=== PATIENT | male | born 1965 | race Caucasian/White ===

== ENCOUNTER 2019-01-15 05:44 | Emergency (ER) | payer BC ==
[~2019-01-15] VITALS: Ht 162.6 cm; Wt 61.2 kg
--- OUTSIDE RECORDS SUMMARY | 2019-01-15 05:49 | XMS REPORT | Continuity of Care Document ---
Author Organization Unknown Address Unknown Allergies There is no data. Medications There is no data. Problems Date Dx Coded Attending Type Code Diagnosis Diagnosed By 09/27/2009 FREDDY LEVINE DO5.3 HEPATITIS VIRAL/ALL 09/27/2009 FREDDY LEVINE DO V05.3 HEPATITIS VIRAL/ALL 11/20/2010 FREDDY LEVINE DO V06.5 DT, TETANUS-DIPHTHERIA [Td] ,TDAP 11/20/2010 FREDDY LEVINE DO V06.5 DT, TETANUS-DIPHTHERIA [Td] ,TDAP 04/14/2013 FREDDY LEVINE DO V04.81 FLU SHOT 04/14/2013 FREDDY LEVINE DO V04.81 FLU SHOT Procedures There is no data. Results There is no data. Encounters ACCT No. Visit Date/Time Discharge Status Pt. Type Provider Facility Loc./Unit Complaint [id number] 04/06/2014 10:38:00 04/06/2014 23:59:59 [facility] Outpatient FREDDY LEVINE DO [id number] 04/14/2013 13:28:00 04/14/2013 23:59:59 [facility] Outpatient FREDDY LEVINE DO
[2019-01-15] MEDS ORDERED: NS IV 1000 ML 1,000 ML IV ONE ×2 (06:02→07:30)
[2019-01-15 06:07] LABS: CLARITY,URINE CLEAR; COLOR,URINE YELLOW; GLUCOSE, URINE (UA) NEGATIVE (NEGATIVE); KETONES,URINE 1+ (NEGATIVE); LEUKOCYTE ESTERASE ,URINE NEGATIVE (NEGATIVE); NITRITE,URINE NEGATIVE (NEGATIVE); PH,URINE 5 (5-9); PROTEIN,URINE 2+ (NEGATIVE); UROBILINOGEN,URINE 1 MG/DL (NORMAL)
[2019-01-15 06:10] LABS: BASOPHILS % (AUTO) 0 % (0-10); EOSINOPHILS # (AUTO) 0.1 10^3/uL (0.0-0.3); EOSINOPHILS % (AUTO) 1 % (0-10); HEMATOCRIT 42 % (40-54); HEMOGLOBIN 14.1 G/DL (13.3-17.7); LYMPHOCYTES # (AUTO) 1.3 X 10^3 (1.0-4.0); LYMPHOCYTES % (AUTO) 15 % (12-44); MEAN CORPUSCULAR HEMOGLOBIN 30 PG (25-34); MEAN CORPUSCULAR HGB CONC 34 G/DL (32-36); MEAN CORPUSCULAR VOLUME 88 FL (80-99); MEAN PLATELET VOLUME 9.1 FL (7.4-10.4); MONOCYTES # (AUTO) 0.7 X 10^3 (0.0-1.0); MONOCYTES % (AUTO) 8 % (0-12); NEUTROPHILS # (AUTO) 6.5 X 10^3 (1.8-7.8); NEUTROPHILS % (AUTO) 76 % (42-75); PLATELET COUNT 192 10^3/uL (130-400); WHITE BLOOD COUNT 8.6 10^3/uL (4.3-11.0)
[2019-01-15] MEDS ORDERED: fentaNYL INJECTION 100 MCG/2 ML AMP IVP STA ×2 (06:14→07:18)
[2019-01-15] MEDS ORDERED: KETOROLAC 30 MG/ML VIAL IVP ONE (06:15)
[2019-01-15] MEDS ORDERED: ONDANSETRON 4 MG/2 ML (SDV) Z0FRAN IVP ONE (06:15)
--- NOTE | 2019-01-15 06:23 | ED GU-Male ---
General Chief Complaint: Abdominal/GI Problems Stated Complaint: KIDNEY STONE Nursing Triage Note: AMBULATORY TO ED ROOM 10 WITH C/O RLQ PAIN. STATES 2 WEEKS AGO HAD KIDNEY STONE THAT PASSED. WAS OUTSIDE WORKING IN YARD ALL DAY YESTERDAY, BUT DID TAKE MULTIPLE REST AND WATER BREAKS. WOKE UP AT 0200 THIS AM WITH PAIN AND NAUSEA. Source: patient Exam Limitations: no limitations History of Present Illness Date Seen by Provider: Jan 15, 2019 Time Seen by Provider: 06:00 Initial Comments Here with report of right-sided abdominal pain that he believes is a kidney sto ne. Had similar symptoms 2 weeks ago and he drank a lot of water at that time. He was ultimately passed. Yesterday he worked out in the yard quite a bit and then went for a run in the evening. He states he drank a lot of water yesterday. 2 AM he woke up with sudden right-sided abdominal pain that goes from the flank to the groin. Had some difficulty with urination. He drinks a lot of water and an effort to get his urine flow going pain increased so he presented here. Nausea and vomiting. No aggravating or relieving factors and is unable to sit still hardly due to pain. Timing/Duration: this morning Severity/Quality: severe, aching, cramping Location: right flank Radiation: groin Activities at Onset: sleep Modifying Factors: Worsens With Movement, Worsens With Resting, Worsens With Urinating Associated Symptoms: No dysuria, No fever/chills, No loss of bladder control; nausea/vomiting; No swelling Allergies and Home Medications Allergies Coded Allergies: No Known Drug Allergies (Unverified , 01/15/19) Patient Home Medication List Home Medication List Reviewed: Yes Review of Systems Review of Systems Constitutional: see HPI; No chills, No fever EENTM: no symptoms reported Respiratory: no symptoms reported Cardiovascular: no symptoms reported Gastrointestinal: see HPI, abdominal pain, nausea; No vomiting Genitourinary: see HPI; denies burning; flank pain Musculoskeletal: no symptoms reported Skin: no symptoms reported All Other Systemes Reviewed Negative Unless Noted: Yes Past Jgeafqc-Ijbizv-Cvvqnx Hx Past Med/Social Hx: Reviewed Nursing Past Med/Soc Hx Patient Social History Alcohol Use: Denies Use Recreational Drug Use: No Smoking Status: Never a Smoker Recent Foreign Travel: No Contact w/Someone Who Travel: No Recent Infectious Disease Expo: No Recent Hopitalizations: No Physical Abuse: No Sexual Abuse: No Mistreated: No Fear: No Seasonal Allergies Seasonal Allergies: No Past Medical History Surgeries: Yes (RHINOPLASTY X2) Respiratory: No Cardiac: No Neurological: No Genitourinary: Yes (KIDNEY STONE PASSED 2 WEEKS AGO) Kidney Stones Gastrointestinal: No Endocrine: No HEENT: No Cancer: No Psychosocial: No Blood Disorders: No Family Medical History Reviewed Nursing Family Hx Physical Exam Vital Signs Vital Signs - First Documented 01/15/19 05:55 Temp 97.1 Pulse 54 Resp 16 B/P (MAP) 112/88 (96) Capillary Refill : Less Than 3 Seconds Height, Weight, BMI Height: 5'4.00" Weight: 135lbs. oz. 61.436471dv; BMI Method:Stated General Appearance: WD/WN, moderate distress HEENT: PERRL/EOMI, pharynx normal Neck: full range of motion, supple Cardiovascular: regular rate, rhythm, no murmur Respiratory: lungs clear, normal breath sounds Gastrointestinal: soft, tenderness (right lower quadrant and right flank) Back: normal inspection, no CVA tenderness, no vertebral tenderness Extremities: non-tender, normal inspection Neurologic/Psychiatric: alert, oriented x 3 Skin: normal color, warm/dry Progress/Results/Core Measures Suspected Sepsis Recent Fever Within 48 Hours: No Infection Criteria Present: Suspected New Infection New/Unexplained Altered Menta: No Sepsis Screen: No Definite Risk SIRS Temperature:97.1 Pulse: 54 Respiratory Rate: 16 Laboratory Tests 01/15/19 06:03: White Blood Count 8.6 Blood Pressure 112 /88 Mean: 96 Laboratory Tests 01/15/19 06:03: Creatinine 1.44H, Platelet Count 192, Total Bilirubin 1.4H Results/Orders Lab Results Laboratory Tests Test 01/15/19 05:57 01/15/19 06:03 Range/Units Urine Color YELLOW Urine Clarity CLEAR Urine pH 5 5-9 Urine Specific [place] 1.025 H 1.016-1.022 Urine Protein 2+ H NEGATIVE Urine Glucose (UA) NEGATIVE NEGATIVE Urine Ketones 1+ H NEGATIVE Urine Nitrite NEGATIVE NEGATIVE Urine Bilirubin 1+ H NEGATIVE Urine Urobilinogen 1 NORMAL MG/DL Urine Leukocyte Esterase NEGATIVE NEGATIVE Urine RBC (Auto) 5+ H NEGATIVE Urine RBC 50-100 H /HPF Urine WBC RARE /HPF Urine Squamous Epithelial Cells NONE /HPF Urine Crystals NONE /LPF Urine Bacteria FEW H /HPF Urine Casts PRESENT /LPF Urine Hyaline Casts RARE /LPF Urine Mucus LARGE H /LPF Urine Culture Indicated NO White Blood Count 8.6 4.3-11.0 10^3/uL Red Blood Count 4.71 4.35-5.85 10^6/uL Hemoglobin 14.1 13.3-17.7 G/DL Hematocrit 42 40-54 % Mean Corpuscular Volume 88 80-99 FL Mean Corpuscular Hemoglobin 30 25-34 PG Mean Corpuscular Hemoglobin Concent 34 32-36 G/DL Red Cell Distribution Width 13.0 10.0-14.5 % Platelet Count 192 130-400 10^3/uL Mean Platelet Volume 9.1 7.4-10.4 FL Neutrophils (%) (Auto) 76 H 42-75 % Lymphocytes (%) (Auto) 15 12-44 % Monocytes (%) (Auto) 8 0-12 % Eosinophils (%) (Auto) 1 0-10 % Basophils (%) (Auto) 0 0-10 % Neutrophils # (Auto) 6.5 1.8-7.8 X 10^3 Lymphocytes # (Auto) 1.3 1.0-4.0 X 10^3 Monocytes # (Auto) 0.7 0.0-1.0 X 10^3 Eosinophils # (Auto) 0.1 0.0-0.3 10^3/uL Basophils # (Auto) 0.0 0.0-0.1 10^3/uL Sodium Level 139 135-145 MMOL/L Potassium Level 3.7 3.6-5.0 MMOL/L Chloride Level 100 98-107 MMOL/L Carbon Dioxide Level 26 21-32 MMOL/L Anion Gap 13 5-14 MMOL/L Blood Urea Nitrogen 30 H 7-18 MG/DL Creatinine 1.44 H 0.60-1.30 MG/DL Estimat Glomerular Filtration Rate 52 BUN/Creatinine Ratio 21 Glucose Level 107 H 70-105 MG/DL Calcium Level 9.7 8.5-10.1 MG/DL Corrected Calcium 8.5-10.1 MG/DL Total Bilirubin 1.4 H 0.1-1.0 MG/DL Aspartate Amino Transf (AST/SGOT) 22 5-34 U/L Alanine Aminotransferase (ALT/SGPT) 18 0-55 U/L Alkaline Phosphatase 66 40-136 U/L Total Protein 7.6 6.4-8.2 GM/DL Albumin 4.7 H 3.2-4.5 GM/DL My Orders Orders - HUSEYIN KESSLER MD Fentanyl Injection (Sublimaze Injection (01/15/19 06:14) Ct Abd/Pelvis Wo(Kidney Stone) (01/15/19 06:28) Abdomen/Kub 1view (01/15/19 06:28) Fentanyl Injection (Sublimaze Injection (01/15/19 07:18) Ed Iv/Invasive Line Start (01/15/19 07:30) Ns Iv 1000 Ml (Sodium Chloride 0.9%) (01/15/19 07:30) Medications Given in ED Current Medications Medications Dose Ordered Sig/Mindy Route Start Time Stop Time Status Last Admin Dose Admin Ketorolac Tromethamine 30 mg ONCE ONCE IVP 01/15/19 06:15 01/15/19 06:16 DC 01/15/19 06:09 30 MG Ondansetron HCl 8 mg ONCE ONCE IVP 01/15/19 06:15 01/15/19 06:16 DC 01/15/19 06:09 8 MG Sodium Chloride 1,000 ml @ 0 mls/hr Q0M ONCE IV 01/15/19 06:02 01/15/19 06:04 DC 01/15/19 06:09 0 MLS/HR Sodium Chloride 1,000 ml @ 0 mls/hr Q0M ONCE IV 01/15/19 07:30 01/15/19 07:31 DC 01/15/19 07:35 1,000 MLS/HR Vital Signs/I&O 01/15/19 05:55 Temp 97.1 Pulse 54 Resp 16 B/P (MAP) 112/88 (96) Capillary Refill : Less Than 3 Seconds Blood Pressure Mean: 96 Progress Note : Progress Note Seen and evaluated. IV, labs, UA, normal saline 1 L bolus, Zofran 8 mg IV and Toradol 30 mg IV ordered. Pain continued. Fentanyl 50 g IV ordered. Monitor patient. CT abdomen and pelvis as well as KUB ordered. 0815: Radiological evaluation complete. Did repeat fentanyl 75 g IV. Stone noted. We will treat outpatient currently. 0820: Overall doing better. Repeat fluids complete. Discharged home with return precautions. Patient verbalize understanding instructions and agreement with plan. Diagnostic Imaging Diagonstic Imaging: CT Plain Films/CT/US/NM/MRI: abdomen, pelvis [facility] [place] [place] NAME: ARA SCHULER [facility] REC#: [id number] PT STATUS: REG ER : 1965 PHYSICIAN: HUSEYIN KESSLER MD ADMIT DATE: 01/15/19/ER Draft Date of Exam:01/15/19 CT ABD/PELVIS WO(KIDNEY STONE) PROCEDURE: CT urinary tract, rule out kidney stone. TECHNIQUE: Multiple contiguous axial images were obtained through the abdomen and pelvis without the use of intravenous contrast. Auto Exposure Controls were utilized during the CT exam to meet ALARA standards for radiation dose reduction. INDICATION: Right lower quadrant abdominal pain Unenhanced images of the liver and spleen are unremarkable. No gallbladder, pancreatic or adrenal gland abnormality identified. Left kidney is unremarkable. There is mild right hydronephrosis with punctate calcification in the lower pole of the right kidney. There is mild dilatation of the right ureter to the level of an approximately 0.2-0.3 cm stone in the midportion of the right ureter. There is no evidence of appendiceal inflammation. No bladder calculus is identified. There is no free fluid seen within the abdomen or pelvis. IMPRESSION: Approximately 0.3 cm calculus is seen in the midportion of the right ureter with mild resultant dilatation of the renal collecting system and ureter indicating at least partial obstruction. Note is made of punctate nonobstructing calculus in the lower pole of the right kidney without other acute abnormality detected. Dictated on workstation # [id number] Dict: 01/15/19718 Trans: 01/15/19 0726 OFELIA [id number] Interpreted by: KEN ANDREW MD Electronically signed by: Diagonstic Imaging: Xray Plain Films/CT/US/NM/MRI: abdomen Comments [facility] [place], [place] NAME: ARA SCHULER [facility] REC#: [id number] PT STATUS: REG ER : 1965 PHYSICIAN: HUSEYIN KESSLER MD ADMIT DATE: 01/15/19/ER Draft Date of Exam:01/15/19 ABDOMEN/KUB 1VIEW INDICATION: Right lower quadrant abdominal pain COMPARISON: None. FINDINGS: Single view of the abdomen demonstrates a nondistended bowel gas pattern. There is no significant constipation. No abnormal calcifications are seen. Osseous structures normal. IMPRESSION: Negative KUB. Dictated on workstation # [id number] Dict: 01/15/19 0805 Trans: 01/15/19 0808 [facility] [id number] Interpreted by: ANAT JONAS Electronically signed by: Departure Impression Primary Impression: Right ureteral stone Disposition: HOME, SELF-CARE Condition: Stable Departure-Patient Inst. Decision time for Depature: 08:24 Referrals: NO,LOCAL PHYSICIAN (PCP) Primary Care Physician DONOVAN DOYLE MD Patient Instructions: Kidney Stones (DC) Add. Discharge Instructions: All discharge instructions reviewed with patient and/or family. Voiced un derstanding. Take medications as directed. You may take ibuprofen 600 mg every 8 hours as needed for pain and I recommend you take that scheduled every 8 hours for 3 days. You may take Tylenol/acetaminophen 1000 mg every 6 hours as needed for pain if you're not taking the prescribed pain medicine but do not take both the same time as they both have acetaminophen in them. Call Dr. Doyle's office in the morning for appointment this week. Return for worse pain, inability to urinate, fever, weakness or other concerns as needed. Ensure that you drink plenty of fluids. Scripts Hydrocodone Bit/Acetaminophen (Hydrocodone/Acetaminophen 5/325mg Tablet) 1 Tab Tab 1 EACH PO Q4-6HR PRN for PAIN-MODERATE MDD 10 for 3 Days, #12 TAB 0 Refills Prov: HUSEYIN KESSLER MD 01/15/19 Cephalexin (Cephalexin) 500 Mg Tablet 500 MG PO BID, #14 TAB 0 Refills Prov: HUSEYIN KESSLER MD 01/15/19 Tamsulosin HCl (Flomax) 0.4 Mg Cap 0.4 MG PO DAILY, #7 CAP Prov: HUSEYIN KESSLER MD 01/15/19 Copy Copies To 1: DONOVAN DOYLE MD, TIMOTHY D MD Jan 15, 2019 06:23
[2019-01-15 06:24] LABS: BACTERIA,URINE FEW /HPF; HYALINE CASTS, URINE RARE /LPF; RBC,URINE 50-100 /HPF; WBC,URINE RARE /HPF
[2019-01-15 06:25] LABS: BILIRUBIN,URINE 1+ (NEGATIVE)
[2019-01-15 06:30] LABS: ALANINE AMINOTRANSFERASE 18 U/L (0-55); ALBUMIN 4.7 GM/DL (3.2-4.5); ALKALINE PHOSPHATASE 66 U/L (40-136); BILIRUBIN,TOTAL 1.4 MG/DL (0.1-1.0); BUN/CREATININE RATIO 21; CALCIUM 9.7 MG/DL (8.5-10.1); CARBON DIOXIDE 26 MMOL/L (21-32); CHLORIDE 100 MMOL/L (98-107); CREATININE SERUM 1.44 MG/DL (0.60-1.30); GFR ESTIMATED 52; GLUCOSE 107 MG/DL (70-105); POTASSIUM 3.7 MMOL/L (3.6-5.0); SODIUM 139 MMOL/L (135-145); TOTAL PROTEIN 7.6 GM/DL (6.4-8.2)
--- NOTE | 2019-01-15 07:27 | Diagnostic Imaging Report ---
PROCEDURE: CT urinary tract, rule out kidney stone. TECHNIQUE: Multiple contiguous axial images were obtained through the abdomen and pelvis without the use of intravenous contrast. Auto Exposure Controls were utilized during the CT exam to meet ALARA standards for radiation dose reduction. INDICATION: Right lower quadrant abdominal pain Unenhanced images of the liver and spleen are unremarkable. No gallbladder, pancreatic or adrenal gland abnormality identified. Left kidney is unremarkable. There is mild right hydronephrosis with punctate calcification in the lower pole of the right kidney. There is mild dilatation of the right ureter to the level of an approximately 0.2-0.3 cm stone in the midportion of the right ureter. There is no evidence of appendiceal inflammation. No bladder calculus is identified. There is no free fluid seen within the abdomen or pelvis. IMPRESSION: Approximately 0.3 cm calculus is seen in the midportion of the right ureter with mild resultant dilatation of the renal collecting system and ureter indicating at least partial obstruction. Note is made of punctate nonobstructing calculus in the lower pole of the right kidney without other acute abnormality detected. Dictated by: Dictated on workstation # [id number]
--- NOTE | 2019-01-15 08:08 | Diagnostic Imaging Report ---
INDICATION: Right lower quadrant abdominal pain COMPARISON: None. FINDINGS: Single view of the abdomen demonstrates a nondistended bowel gas pattern. There is no significant constipation. No abnormal calcifications are seen. Osseous structures normal. IMPRESSION: Negative KUB. Dictated by: Dictated on workstation # [id number]
[2019-01-15] MEDS ORDERED: TAMS0.4C98 PO (08:31)
[2019-01-15] MEDS ORDERED: CEPH500T PO (08:31)
[2019-01-15] MEDS ORDERED: ACHD5005 PO (08:31)
[2019-01-15 08:40] VITALS: BP 110/80
[2019-01-24] MEDS ORDERED: CETI10CA PO (07:54)
== END 2019-01-15 08:40 | disposition home or self-care (01) ==
LOC: EDUNIT# 05:44 → ER 05:46
DX: N13.2 Hydronephrosis with renal and ureteral calculous obstruction (principal)
CPT/HCPCS: 36415; 74018; 74176; 80053; 81000; 85025; 96361; 96374; 96375; 96376

== ENCOUNTER → 2019-01-23 | Outpatient (CLI) | payer BC ==
[~2019-01-23] MED LIST: ACHD5005 PO; CEPH500T PO; CETI10CA PO; PHEN-640 PO; TAMS0.4C98 PO
--- NOTE | 2019-01-23 13:24 | Diagnostic Imaging Report ---
PROCEDURE: CT urinary tract, rule out kidney stone. TECHNIQUE: Multiple contiguous axial images were obtained through the abdomen and pelvis without the use of intravenous contrast. Auto Exposure Controls were utilized during the CT exam to meet ALARA standards for radiation dose reduction. INDICATION: Right ureteral calculi. Study is performed for followup. COMPARISON: Correlation is made with recent CT study from 01/15/2019. FINDINGS: A previously noted 2-3 mm calculus in the mid right ureter is again noted and appears to be in a similar location within the right ureter. However, the degree of renal enlargement on the right as well as perinephric and periureteral inflammatory stranding has significantly improved. In addition, the degree of hydronephrosis and hydroureter appears to be improved. Left kidney is unremarkable. Lung bases are clear. Liver and gallbladder are unremarkable. Pancreas and spleen are unremarkable. No adrenal mass is detected. Bowel loops are normal in caliber. Appendix is visualized in the right lower quadrant and unremarkable. There is no ascites or inflammatory process seen. Bladder and prostate appear to be stable. Bony structures are nonacute. IMPRESSION: 2-3 mm mid right ureteric calculus appears unchanged in position when compared with examination from 01/15/2019. However, the degree of right-sided hydroureteronephrosis as well as right renal enlargement with perinephric and periureteral inflammatory stranding has improved since prior exam. No new abnormality is detected. Dictated by: Dictated on workstation # [id number]
== END ==
LOC: RAD 12:09
PROVIDERS: ATTEND Urology
DX: N13.2 Hydronephrosis with renal and ureteral calculous obstruction (principal)
CPT/HCPCS: 74176

== ENCOUNTER 2019-02-13 11:22 | Outpatient (RCR) | payer BC | END 2019-05-14 | disposition home or self-care (01) | LOC: LAB 11:22 | PROVIDERS: ATTEND Urology | DX: N20.0 Calculus of kidney (principal) | CPT/HCPCS: 36415; 82140; 82340; 82507; 82570; 83735; 83945; 83986; 84105; 84133; 84300; 84392; 84560 ==

== ENCOUNTER 2021-01-03 06:28 | Outpatient (CLI) | payer BC ==
[~2021-01-03] VITALS: Ht 162.6 cm; Wt 61.3 kg
[~2021-01-03 06:28] MED LIST changes: -TAMS0.4C98 PO; +TMSL.4C PO
== END 2021-01-07 12:06 | disposition home or self-care (01) ==
LOC: PREOP 06:28
PROVIDERS: ATTEND Surgery
DX: Z01.818 Encounter for other preprocedural examination (principal)

== ENCOUNTER → 2021-01-10 | Day surgery (SDC) | payer BC ==
[~2021-01-10] VITALS: Ht 162.6 cm; Wt 61.3 kg
[~2021-01-10] MED LIST changes: +LACTATED RINGERS 1,000 ML IV ONE; +LACTATED RINGERS 1,000 ML IV STA; +MIDAZOLAM 2 MG/2 ML (VERSED) VIAL ONE; +PROPOFOL INJECTION 50 ML IV ONE
[2021-01-10 07:04] VITALS: BP 118/65
[2021-01-10 08:20] VITALS: BP 91/54
[2021-01-10 08:25] VITALS: BP 93/53
[2021-01-10 08:50] VITALS: BP 96/66
--- NOTE | 2021-01-10 08:59 | Anesthesia-General Post-Op ---
MAC Patient Condition Mental Status/LOC: Same as Preop Cardiovascular: Satisfactory Nausea/Vomiting: Absent Respiratory: Satisfactory Pain: Controlled Complications: Absent Post Op Complications Complications None Follow Up Care/Instructions Patient Instructions None needed. Anesthesiology Discharge Order Discharge Order Patient is doing well, no complaints, stable vital signs, no apparent adverse anesthesia problems. No complications reported per nursing. RANDY LOZA CRNA Jan 10, 2021 08:59
[2021-01-10 09:07] VITALS: BP 96/66
--- NOTE | 2021-01-11 01:01 | OPERATIVE REPORT ---
DATE OF SERVICE: 01/10/2021 PREOPERATIVE DIAGNOSIS: Screening colonoscopy, family history of colon cancer. POSTOPERATIVE DIAGNOSIS: Descending colon polyp. PROCEDURE: Colonoscopy with hot biopsy polypectomy. SURGEON: Hammad Moore DO ANESTHESIA: Per FABRICATION OPERATOR. ESTIMATED BLOOD LOSS: None. COMPLICATIONS: None. INDICATIONS: The patient is a 55-year-old male needing screening colonoscopy. He understands risks and benefits of procedure and wished to proceed with procedure. Consent was signed in the chart. DESCRIPTION OF PROCEDURE: The patient was taken to the endoscopy suite, placed in left lateral recumbent position. Timeout was performed. A digital rectal exam was performed noting some external hemorrhoidal disease. No palpable polyps, masses or ulcerations. Scope was inserted in the rectum and advanced all the way to cecum with minimal difficulty. Prep was adequate. The ileocecal valve was intubated with normal appearance of the terminal ileum. Scope was retracted back into the colon. No polyps, masses or ulcerations within the cecum, ascending and transverse colon. In the descending colon, a small polyp was present, which hot biopsy polypectomy was performed. Scope was then continuously slowly retracted back through the remainder of the descending and sigmoid colon without any evidence of polyps. Scope was continued to the rectum where it was also retroflexed noting no other pathology. Scope was returned to its normal position, slowly withdrawn until completely removed. The patient tolerated procedure well without any complications and taken to recovery room in stable condition. RECOMMENDATIONS: The patient will need repeat colonoscopy in 5 years. Any issues before that be seen at that time. The patient will follow up on pathology. Job ID: [id number] DocumentID: [id number] Dictated Date: 01/10/2021 21:41:50 Consultant Teacher Date: 01/11/2021 01:00:02 Dictated By: HAMMAD MOORE DO
== END ==
LOC: SDC 06:09
PROVIDERS: ATTEND Surgery
DX: Z12.11 Encounter for screening for malignant neoplasm of colon (principal); D12.4 Benign neoplasm of descending colon; Z80.0 Family history of malignant neoplasm of digestive organs; Z79.899 Other long term (current) drug therapy
CPT/HCPCS: 88305